=== PATIENT | female | born 1955 | race Caucasian/White ===

== ENCOUNTER 2017-08-04 08:33 | Day surgery (SDC) | payer BC ==
[~2017-08-04 08:33] MED LIST: AZO-STANDARD95 MG PO; BENADRYL ALLERG25 M3 PO; CYMBALTA60 MG PO; IMITREX50 MG PO; MOTRIN 600MG.600 MG PO; SYNTHROID0.025 MG PO; TOPAMAX50 MG PO
--- NOTE | 2017-08-04 09:48 | Operative Note ---
Upper GI Endoscopy Procedure date: 08/04/17 Date of : 53 Procedure:Upper GI Endoscopy Esophagogastroduodenoscopy with cold biopsies and TTS balloon dilation Indications: Mrs. Alvarado is a 62-year-old female who reports reflux which is mostly controlled with omeprazole 20 mg by mouth daily. She also has had more coughing with frequent clearance of the throat but no globus sensation. This is not improved with omeprazole. She reports very mild belching but no more than usual. She reports no dysphagia, indigestion or dyspepsia. She has regular bowel function. This is her first upper endoscopy. Performing Provider: Marty Perez MD Referring Provider: Miah Montiel M.D. Sedation: Fentanyl 200 mg IV/Versed 8 mg IV Procedure: Prior to the procedure, a history and physical exam was performed, and patients medications and allergies were reviewed. The risks and benefits of the procedure and the sedation options and risks were discussed with the patient. All questions were answered and informed consent was obtained. The patient was brought to the procedure room. Patient identification and proposed procedure were verified by the physician and the nurse. The patient was placed in a left lateral decubitus position and the scope was passed under direct vision. Throughout the procedure, the patient's blood pressure, pulse, and oxygen saturations were monitored continuously. The endoscope was introduced through the mouth, and advanced to the second part of duodenum. The upper GI endoscopy was accomplished without difficulty. The patient tolerated the procedure well. Findings: The scope was passed directly into the upper esophagus and advanced to the third portion of the duodenum. The post bulbar duodenum and duodenal bulb were normal with normal mucosa and conniventes. The scope was withdrawn through a normal duodenal bulb and pylorus into the stomach. There was mild linear erythema of the antrum. The remainder of the antrum, body and fundus of the stomach were grossly normal. Upon retroflexion there was a sliding 2-3 cm hiatal hernia. 2 biopsies were taken in the antrum and along the lesser curvature for histology. The scope was then withdrawn into the esophagus. There was a serrated Z line with one very shallow short linear erosion consistent with grade A reflux esophagitis. Cold biopsies were taken at Z line within the esophagus. There was no stricturing or Chin's. There were tertiary contractions. There was also evidence of cricopharyngeal spasm. This was dilated to 18-20 mm with a TTS hydrostatic balloon. There was resistance at the cricopharyngeus. The remainder of the esophageal mucosa was normal. Immediate complications: None EBL (ml): 0 Impression: 1. Cricopharyngeal spasm 2. Grade A reflux esophagitis with mild esophageal dysmotility and 2-3 cm sliding hiatal hernia 3. Mild linear reactive gastritis Recommendations: I am going to increase omeprazole to 40 mg daily for 3 months. I would also consider adding promotility therapy or fiber bowel regimen. I will follow-up the biopsies. I do feel that this represents functional gastroesophageal reflux disease. I would recommend screening colonoscopy since it has been 13-15 years. at [address]999
[2017-08-04 13:31] VITALS: BP 173/106
== END 2017-08-04 11:00 | disposition home or self-care (01) ==
LOC: SDC 08:33
PROVIDERS: Internal Medicine Gastroenterology
PROC: 0DB68ZX Excision of Stomach, Via Natural or Artificial Opening Endoscopic, Diagnostic (ICD-10-PCS; 2017-08-04)
PROC: 0D758ZZ Dilation of Esophagus, Via Natural or Artificial Opening Endoscopic (ICD-10-PCS; 2017-08-04)
PROC: 0DB58ZX Excision of Esophagus, Via Natural or Artificial Opening Endoscopic, Diagnostic (ICD-10-PCS; principal; 2017-08-04 09:00)
DX: K21.0 Gastro-esophageal reflux disease with esophagitis (principal); J39.2 Other diseases of pharynx; K44.9 Diaphragmatic hernia without obstruction or gangrene; K22.4 Dyskinesia of esophagus
CPT/HCPCS: C1726